=== PATIENT | male | born 1950 | race American Indian/Alaskan Native ===

== ENCOUNTER 2020-12-15 12:23 | Emergency (ER) | payer MEDICARE ==
--- NOTE | 2020-12-15 15:01 | Emergency Department Report ---
ED Male HPI - General Chief complaint: Urogenital-Male Stated complaint: CONSTANT URINATION Time Seen by Provider: 12/15/20 14:55 Source: patient Mode of arrival: Ambulatory Limitations: No Limitations - History of Present Illness Initial comments: Patient is a 70-year-old male who presents emergency room with complaints of urinary frequency that worsened today. He states that initially began 3 days ago. He has associated dysuria. He states he has mild lower back pain. He denies any abdominal pain, fever, nausea, vomiting, diarrhea, chills, difficulty urinating. He has a past medical history of hypertension. He denies any history of diabetes or prostate issues. No allergies to medications. He states that he is only sexually active with his rarely and denies any concerns for STDs. - Related Data Previous Rx's Medication Instructions Recorded Last Taken Type cephALEXin [Keflex] 500 mg PO BID 14 Days #28 capsule 12/15/20 Unknown Rx Allergies Allergy/AdvReac Type Severity Reaction Status Date / Time No Known Allergies Allergy Unverified 12/15/20 13:41 ED Review of Systems ROS: Stated complaint: CONSTANT URINATION Other details as noted in HPI Comment: All other systems reviewed and negative ED Past Medical Hx - Past Medical History Previous Medical History?: Yes Hx Hypertension: Yes - Surgical History Past Surgical History?: No - Medications Home Medications: Home Medications Medication Instructions Recorded Confirmed Last Taken Type cephALEXin [Keflex] 500 mg PO BID 14 Days #28 capsule 12/15/20 Unknown Rx ED Physical Exam - General Limitations: No Limitations General appearance: alert, in no apparent distress - Head Head exam: Present: atraumatic, normocephalic - Eye Eye exam: Present: normal appearance - ENT ENT exam: Present: mucous membranes moist - Respiratory Respiratory exam: Present: normal lung sounds bilaterally. Absent: respiratory distress, wheezes, rales, rhonchi, stridor, chest wall tenderness, accessory mus deandra use, decreased breath sounds, prolonged expiratory - Cardiovascular Cardiovascular Exam: Present: regular rate, normal rhythm, normal heart sounds. Absent: systolic murmur, diastolic murmur, rubs, gallop - GI/Abdominal GI/Abdominal exam: Present: soft, normal bowel sounds. Absent: distended, tenderness, guarding, rebound, rigid - Back Exam Back exam: Absent: CVA tenderness (R), CVA tenderness (L) - Neurological Exam Neurological exam: Present: alert, oriented X3 - Psychiatric Psychiatric exam: Present: normal affect, normal mood - Skin Skin exam: Present: warm, dry, intact ED Course Vital Signs 12/15/20 12/15/20 12/15/20 13:44 18:36 18:37 Temperature 100.1 F H Pulse Rate 82 76 Respiratory 18 16 16 Rate Blood Pressure 143/60 [Right] O2 Sat by Pulse 97 96 Oximetry 12/15/20 18:59 Temperature Pulse Rate 69 Respiratory 16 Rate Blood Pressure 143/69 [Right] O2 Sat by Pulse 97 Oximetry ED Medical Decision Making - Lab Data Result diagrams: 12/15/20 15:02 12/15/20 15:02 Lab Results 12/15/20 12/15/20 12/15/20 Range/Units 15:02 15:02 17:04 WBC 25.7 H (4.5-11.0) K/mm3 RBC 4.11 (3.65-5.03) M/mm3 Hgb 12.6 (11.8-15.2) gm/dl Hct 37.2 (35.5-45.6) % MCV 90 (84-94) fl MCH 31 (28-32) pg MCHC 34 (32-34) % RDW 13.7 (13.2-15.2) % Plt Count 196 (140-440) K/mm3 Add Manual Diff Complete Total Counted 100 Seg Neuts % (Manual) 88.0 H (40.0-70.0) % Lymphocytes % (Manual) 6.0 L (13.4-35.0) % Monocytes % (Manual) 6.0 (0.0-7.3) % Nucleated RBC % Not Reportable Seg Neutrophils # Man 22.6 H (1.8-7.7) K/mm3 Band Neutrophils # 0.0 K/mm3 Lymphocytes # (Manual) 1.5 (1.2-5.4) K/mm3 Abs React Lymphs (Man) 0.0 K/mm3 Monocytes # (Manual) 1.5 H (0.0-0.8) K/mm3 Eosinophils # (Manual) 0.0 (0.0-0.4) K/mm3 Basophils # (Manual) 0.0 (0.0-0.1) K/mm3 Metamyelocytes # 0.0 K/mm3 Myelocytes # 0.0 K/mm3 Promyelocytes # 0.0 K/mm3 Blast Cells # 0.0 K/mm3 WBC Morphology Not Reportable Hypersegmented Neuts Not Reportable Hyposegmented Neuts Not Reportable Hypogranular Neuts Not Reportable Smudge Cells Not Reportable Toxic Granulation Not Reportable Toxic Vacuolation Not Reportable Dohle Bodies Not Reportable Pelger-Huet Anomaly Not Reportable Felicia Rods Not Reportable Platelet Estimate Not Reportable Clumped Platelets Not Reportable Plt Clumps, EDTA Not Reportable Large Platelets Not Reportable Giant Platelets Not Reportable Platelet Satelliting Not Reportable Plt Morphology Comment Not Reportable RBC Morphology Normal Dimorphic RBCs Not Reportable Polychromasia Not Reportable Hypochromasia Not Reportable Poikilocytosis Not Reportable Anisocytosis Not Reportable Microcytosis Not Reportable Macrocytosis Not Reportable Spherocytes Not Reportable Pappenheimer Bodies Not Reportable Sickle Cells Not Reportable Target Cells Not Reportable Tear Drop Cells Not Reportable Ovalocytes Not Reportable Helmet Cells Not Reportable Mccloud-Snyder Bodies Not Reportable [place] Rings Not Reportable Langley Cells Not Reportable Bite Cells Not Reportable Crenated Cell Not Reportable Elliptocytes Not Reportable Acanthocytes (Spur) Not Reportable Rouleaux Not Reportable Hemoglobin C Crystals Not Reportable Schistocytes Not Reportable Malaria parasites Not Reportable Angel Bodies Not Reportable Hem Pathologist Commnt No Sodium 135 L (137-145) mmol/L Potassium 3.9 (3.6-5.0) mmol/L Chloride 99.1 (98-107) mmol/L Carbon Dioxide 25 (22-30) mmol/L Anion Gap 15 mmol/L BUN 9 (9-20) mg/dL Creatinine 0.9 (0.8-1.3) mg/dL Estimated GFR > 60 ml/min BUN/Creatinine Ratio 10 % Glucose 120 H (75-100) mg/dL Lactic Acid 1.20 (0.7-2.0) mmol/L Calcium 9.0 (8.4-10.2) mg/dL Total Bilirubin 1.00 (0.1-1.2) mg/dL AST 28 (5-40) units/L ALT 31 (7-56) units/L Alkaline Phosphatase 103 (35-129) units/L Total Protein 7.6 (6.3-8.2) g/dL Albumin 3.9 (3.9-5) g/dL Albumin/Globulin Ratio 1.1 % Urine Color (Yellow) Urine Turbidity (Clear) Urine pH (5.0-7.0) Ur Specific [place] (1.003-1.030) Urine Protein (Negative) mg/dL Urine Glucose (UA) (Negative) mg/dL Urine Ketones (Negative) mg/dL Urine Blood (Negative) Urine Nitrite (Negative) Urine Bilirubin (Negative) Urine Urobilinogen (<2.0) mg/dL Ur Leukocyte Esterase (Negative) Urine WBC (Auto) (0.0-6.0) /HPF Urine RBC (Auto) (0.0-6.0) /HPF U Epithel Cells (Auto) (0-13.0) /HPF Urine Bacteria (Auto) (Negative) /HPF Urine Mucus /HPF Urine Yeast (Budding) /HPF 12/15/ Range/Units Unknown WBC (4.5-11.0) K/mm3 RBC (3.65-5.03) M/mm3 Hgb (11.8-15.2) gm/dl Hct (35.5-45.6) % MCV (84-94) fl MCH (28-32) pg MCHC (32-34) % RDW (13.2-15.2) % Plt Count (140-440) K/mm3 Add Manual Diff Total Counted Seg Neuts % (Manual) (40.0-70.0) % Lymphocytes % (Manual) (13.4-35.0) % Monocytes % (Manual) (0.0-7.3) % Nucleated RBC % Seg Neutrophils # Man (1.8-7.7) K/mm3 Band Neutrophils # K/mm3 Lymphocytes # (Manual) (1.2-5.4) K/mm3 Abs React Lymphs (Man) K/mm3 Monocytes # (Manual) (0.0-0.8) K/mm3 Eosinophils # (Manual) (0.0-0.4) K/mm3 Basophils # (Manual) (0.0-0.1) K/mm3 Metamyelocytes # K/mm3 Myelocytes # K/mm3 Promyelocytes # K/mm3 Blast Cells # K/mm3 WBC Morphology Hypersegmented Neuts Hyposegmented Neuts Hypogranular Neuts Smudge Cells Toxic Granulation Toxic Vacuolation Dohle Bodies Pelger-Huet Anomaly Felicia Rods Platelet Estimate Clumped Platelets Plt Clumps, EDTA Large Platelets Giant Platelets Platelet Satelliting Plt Morphology Comment RBC Morphology Dimorphic RBCs Polychromasia Hypochromasia Poikilocytosis Anisocytosis Microcytosis Macrocytosis Spherocytes Pappenheimer Bodies Sickle Cells Target Cells Tear Drop Cells Ovalocytes Helmet Cells Mccloud-Snyder Bodies [place] Rings Langley Cells Bite Cells Crenated Cell Elliptocytes Acanthocytes (Spur) Rouleaux Hemoglobin C Crystals Schistocytes Malaria parasites Angel Bodies Hem Pathologist Commnt Sodium (137-145) mmol/L Potassium (3.6-5.0) mmol/L Chloride (98-107) mmol/L Carbon Dioxide (22-30) mmol/L Anion Gap mmol/L BUN (9-20) mg/dL Creatinine (0.8-1.3) mg/dL Estimated GFR ml/min BUN/Creatinine Ratio % Glucose (75-100) mg/dL Lactic Acid (0.7-2.0) mmol/L Calcium (8.4-10.2) mg/dL Total Bilirubin (0.1-1.2) mg/dL AST (5-40) units/L ALT (7-56) units/L Alkaline Phosphatase (35-129) units/L Total Protein (6.3-8.2) g/dL Albumin (3.9-5) g/dL Albumin/Globulin Ratio % Urine Color Yellow (Yellow) Urine Turbidity Clear (Clear) Urine pH 6.0 (5.0-7.0) Ur Specific [place] 1.017 (1.003-1.030) Urine Protein <15 mg/dl (Negative) mg/dL Urine Glucose (UA) Neg (Negative) mg/dL Urine Ketones Neg (Negative) mg/dL Urine Blood Neg (Negative) Urine Nitrite Neg (Negative) Urine Bilirubin Neg (Negative) Urine Urobilinogen 4.0 (<2.0) mg/dL Ur Leukocyte Esterase Lg (Negative) Urine WBC (Auto) 39.0 H (0.0-6.0) /HPF Urine RBC (Auto) 1.0 (0.0-6.0) /HPF U Epithel Cells (Auto) 1.0 (0-13.0) /HPF Urine Bacteria (Auto) 4+ (Negative) /HPF Urine Mucus Few /HPF Urine Yeast (Budding) Few /HPF Vital Signs 12/15/20 12/15/20 12/15/20 13:44 18:36 18:37 Temperature 100.1 F H Pulse Rate 82 76 Respiratory 18 16 16 Rate Blood Pressure 143/60 [Right] O2 Sat by Pulse 97 96 Oximetry - Radiology Data Radiology results: report reviewed Ordering Physician: QUANG MILLER Date of Service: 12/15/20 Procedure(s): CT abdomen pelvis w con Accession Number(s): [id number] cc: QUANG MILLER CT ABDOMEN AND PELVIS WITH CONTRAST HISTORY: back pain, urinary symptoms, leukocytosis. COMPARISON: None. TECHNIQUE: CT images of the abdomen and pelvis were obtained following administration of intravenous contrast. All CT scans at this location are performed using CT dose reduction for ALARA by means of automated exposure control. CONTRAST: 100 ml of intravenous contrast administered. FINDINGS: Lungs/bones: Lung bases are clear Abdomen/pelvis: There is diffuse fatty infiltration the liver. Spleen, adrenal glands, pancreas appear normal. Gallbladder is unremarkable. Left renal cyst is seen. Urinary bladder is thickened there is inflammatory change in questionable edema in the wall. Prostate is mildly enlarged. No CT evidence for appendicitis. IMPRESSION: 1. Diffuse thickening and inflammation within and surrounding urinary bladder wall which could represent cystitis. Clinical correlation urinalysis. 2. Left renal cyst. Signer Name: Andrea Jones MD Signed: 12/15/2020 6:44 PM Workstation Name: [id number] Transcribed By: CW Dictated By: LOURDES JONES MD Electronically Authenticated By: LOURDES JONES MD Signed Date/Time: 12/15/201843 DD/ 41 TD/TT: - Medical Decision Making Patient is a 70-year-old male who presents emergency room with complaints of urinary frequency that worsened today. He states that initially began 3 days ago. He has associated dysuria. He states he has mild lower back pain. He denies any abdominal pain, fever, nausea, vomiting, diarrhea, chills, difficulty urinating. He has a past medical history of hypertension. He denies any history of diabetes or prostate issues. No allergies to medications. He states that he is only sexually active with his rarely and denies any concerns for STDs. initial vitals with mild low grade temperature, no tachycardia, no hypotension. labs with WBC 25.7. lactic acid is normal. UA with evidence of UTI. CT abdomen pelvis with IV contrast: 1. Diffuse thickening and inflammation within and surrounding urinary bladder wall which could represent cystitis. Clinical correlation urinalysis. 2. Left renal cyst. Patient given IV fluids and IV ceftriaxone. Discussed case with Dr. Alyssa Carreon, ER attending she stressed the importance of outpatient follow-up and to give patient return precautions, advised to send patient home with 14 days of Keflex. I discussed in detail with patient all of his results and answer questions. I discussed the importance of follow-up with primary care doctor for repeat labs and repeat urine. I discussed the leukocytosis with patient and that there could be a possible concern for malignancy and he needs follow-up for further evaluation. Patient verbalized understanding and states that he does have a primary care doctor which he sees regularly. Advised patient Please take medication as prescribed. Increase your water intake. Please follow-up with your primary care doctor. Please have your primary care doctor retest your urine for clearance of bacteria. Please also have your primary care doctor repeat your labs, today your white blood cell count was 25.7 and that is an abnormal finding, you need to have this repeated by your primary care doctor. Return to the emergency room immediately for any new or worsening symptoms including not limited to worsening pain, fever, vomiting, dizziness, confusion, unable to urinate, etc. Critical care attestation.: If time is entered above; I have spent that time in minutes in the direct care of this critically ill patient, excluding procedure time. ED Disposition Clinical Impression: UTI (urinary tract infection) Qualifiers: Urinary tract infection type: acute cystitis Hematuria presence: without hematuria Qualified Code(s): N30.00 - Acute cystitis without hematuria Leukocytosis Qualifiers: Leukocytosis type: unspecified Qualified Code(s): D72.829 - Elevated white blood cell count, unspecified Disposition: - TO HOME OR SELFCARE Is pt being admited?: No Does the pt Need Aspirin: No Condition: Stable Instructions: Urinary Tract Infection, Adult Additional Instructions: Please take medication as prescribed. Increase your water intake. Please follow-up with your primary care doctor. Please have your primary care doctor retest your urine for clearance of bacteria. Please also have your primary care doctor repeat your labs, today your white blood cell count was 25.7 and that is an abnormal finding, you need to have this repeated by your primary care doctor. Return to the emergency room immediately for any new or worsening symptoms including not limited to worsening pain, fever, vomiting, dizziness, confusion, unable to urinate, etc. Prescriptions: cephALEXin [Keflex] 500 mg PO BID 14 Days #28 capsule Referrals: QUENTIN THOMAS JR, MD [Primary Care Provider] - 2-3 Days Time of Disposition: 18:55 Print Language: MARSHALLESE
[2020-12-15] MEDS ORDERED: ACETAMINOPHEN 325 MG TAB PO ONE (15:02)
[2020-12-15 15:20] LABS: Hematocrit 37.2 % (35.5-45.6); Hemoglobin 12.6 gm/dl (11.8-15.2); Mean Corpuscular HGB Conc 34 % (32-34); Mean Corpuscular Volume 90 fl (84-94); Platelet Count 196 K/mm3 (140-440); Red Blood Count 4.11 M/mm3 (3.65-5.03); Red Cell Distribution Width 13.7 % (13.2-15.2)
[2020-12-15 15:56] LABS: Alanine Aminotransferase 31 units/L (7-56); Albumin 3.9 g/dL (3.9-5); BUN/Creatinine Ratio 10; Blood Urea Nitrogen 9 mg/dL (9-20); Hemolysis Index 20
[2020-12-15] MEDS ORDERED: SODIUM CHLORIDE 0.9% 1000 ML 1,000 ML IV ONE (16:11)
[2020-12-15] MEDS ORDERED: cefTRIAXone/NS 1 GM/50 ML 1 GM/50 ML BAG IV ONE (16:12)
[2020-12-15 16:32] LABS: Bacteria,Urine 4+ /HPF (Negative); Bilirubin,Urine NEG (Negative); Blood,Urine NEG (Negative); Color,Urine Yellow (Yellow); Mucus,Urine FEW /HPF; Protein,Urine <15 mg/dL mg/dL (Negative)
[2020-12-15 16:42] LABS: Total Cells Counted 100
[2020-12-15 16:43] LABS: RBC Morphology Normal
--- NOTE | 2020-12-15 18:48 | Cat Scan Report ---
CT ABDOMEN AND PELVIS WITH CONTRAST HISTORY: back pain, urinary symptoms, leukocytosis. COMPARISON: None. TECHNIQUE: CT images of the abdomen and pelvis were obtained following administration of intravenous contrast. All CT scans at this location are performed using CT dose reduction for ALARA by means of automated exposure control. CONTRAST: 100 ml of intravenous contrast administered. FINDINGS: Lungs/bones: Lung bases are clear Abdomen/pelvis: There is diffuse fatty infiltration the liver. Spleen, adrenal glands, pancreas appe ar normal. Gallbladder is unremarkable. Left renal cyst is seen. Urinary bladder is thickened there is inflammatory change in questionable edema in the wall. Prostate is mildly enlarged. No CT evidence for appendicitis. IMPRESSION: 1. Diffuse thickening and inflammation within and surrounding urinary bladder wall which could repres ent cystitis. Clinical correlation urinalysis. 2. Left renal cyst. Signer Name: Andrea Jones MD Signed: 12/15/2020 6:44 PM Workstation Name: [id number]
[2020-12-15 19:00] VITALS: BP 143/69
== END 2020-12-15 19:35 | disposition home or self-care (01) ==
LOC: ED 12:23
DX: N39.0 Urinary tract infection, site not specified (principal); D72.829 Elevated white blood cell count, unspecified; I10 Essential (primary) hypertension; Z79.899 Other long term (current) drug therapy
CPT/HCPCS: 36415; 74177; 80053; 81001; 82140; 85007; 85025; 87040; 87076; 87086; 87186; 96365; 99284; J0696; J7030; Q9967